=== PATIENT | male | born 1960 | race Caucasian/White ===

== ENCOUNTER 2016-06-27 23:35 | Emergency (ER) | payer OTHER ==
[~2016-06-27] VITALS: Ht 198.1 cm; Wt 81.6 kg
[~2016-06-27 23:35] MED LIST: AMOXIL500 MG PO; AUGMENTIN 875 M1 TAB PO; BACTRIM DS 8001 TAB PO; GABAPENTIN800 MG PO; MIRALAX17 GM PO; MULTIVITAMIN1 TA1 PO; PROPRANOLOL HCL40 MG PO; SPIRONOLACTONE100 MG PO; THIAMINE-100100 MG PO; URSODIOL300 MG PO; XIFAXAN550 MG PO; [UNRECOGNIZED DRUG - OTHER] PO
--- NOTE | 2016-06-27 23:49 | ED AMS/SEIZURE/WEAK/DIZZY ---
History of Present Illness General Chief Complaint: Altered Mental Status Stated Complaint: BIBA AMS Source: patient Exam Limitations: no limitations Vital Signs & Intake/Output Vital Signs & Intake/Output Vital Signs Date Time Temp Pulse Resp B/P Pulse O2 O2 Flow FiO2 Ox Delivery Rate 06/28 0227 98 06/27 2348 97.0 75 18 137/87 96 Room Air ED Intake and Output 06/28 0000 06/27 1200 Intake Total Output Total Balance Patient 180 lb Weight Allergies Coded Allergies: NO KNOWN ALLERGIES (03/05/14) Reconcile Medications Amoxicillin (Amoxil) 500 MG CAP 1 TAB PO TID CELLULITIS AMOXICILLIN/POTASSIUM CLAV (Augmentin 875-125 Tablet) 875 MG/125 MG TAB 1 TAB PO BID ABRASION/ANIMAL BITE [FLOVITE] 1 MG PO DAILY VITAMIN (Reported) Gabapentin 800 MG TABLET 800 MG PO TID RESTLESS LEGS (Reported) Gabapentin 400 MG CAPSULE 1 CAP PO TID NEUROPATHY (Reported) Multivitamin2 (Multivitamin) 1 EACH TAB 1 TAB PO DAILY VITAMIN (Reported) Pantoprazole Sodium 40 MG TABLET.DR 1 TAB PO DAILY REFLUX (Reported) Polyethylene Glycol 3350 (Miralax) 17 GRAM/DOSE POWDER 17 GM PO DAILY GI ( Reported) mix with water, juice, soda, coffee or tea Propranolol Hydrochloride (Propranolol HCl) 40 MG TAB 10 MG PO BID HTN ( Reported) Rifaximin (Xifaxan) 550 MG TAB 550 MG PO DAILY DIARRHEA (Reported) Spironolactone 100 MG TAB 50 MG PO DAILY CARDIAC (Reported) Sulfamethoxazole/Trimethopri (Bactrim Ds 800 MG-160 MG) 1 TAB TAB 1 TAB PO BID CELLULITIS Thiamine (Thiamine-100) 100 MG TAB 100 MG PO DAILY VITAMIN (Reported) Ursodiol 300 MG CAPSULE 1 CAP PO BID OTHER (Reported) Triage Note: PER EMS FOUND BY POLICE ON SIDEROAD WITH ENGINE OFF ?ALTERED ADMITS TO 2 NIPS TONIGHT, DENIES HEAVY CONSUMPTION, PER EMS INCONTINENT OF DIARRHEA, Triage Nurses Notes Reviewed? yes Onset: Abrupt Duration: hour(s): (FEW) Injury Environment: home Severity: severe No Modifying Factors: none HPI: 55-year-old male brought in by parents from home for chief complaint of being intoxicated. Patient was found intoxicated, covered with dried stool. He is status post discharge from [place] 2 days ago. Currently states that he is back to drinking and 1 night per day. He states he is drinking [employer]. History of alcoholic liver disease and cirrhosis per the patient. He denies any illicit drug use. He was found sitting in his car with the engine off on a side street. Police were called, who then contacted EMS. (RANJIT SALGADO MD) Past History Travel History Traveled to [place] past 21 day No Medical History Any Pertinent Medical History? see below for history Neurological: NONE EENT: NONE Cardiovascular: NONE Respiratory: NONE Gastrointestinal: C-DIFF Hepatic: ELEVATED LIVER ENZYMES Renal: NONE Musculoskeletal: NONE Psychiatric: NONE Endocrine: NONE Tetanus Vaccine: 10/29/13 Surgical History Surgical History: non-contributory Psychosocial History What is your primary language Vincentian Tobacco Use: Current Daily Use Daily Tobacco Use Amount/Type: =< 4 Cigarettes daily ETOH Use: heavy use Illicit Drug Use: amphetamines Family History Hx Contributory? No (RANJIT SALGADO MD) Review of Systems Review of Systems Constitutional: Denies: chills, fever. EENTM: Reports: no symptoms. Respiratory: Denies: cough. Cardiovascular: Denies: chest pain. GI: Denies: abdominal pain, diarrhea, nausea, vomiting. Genitourinary: Reports: no symptoms. Musculoskeletal: Reports: no symptoms. Skin: Reports: no symptoms. Neurological/Psychological: Reports: no symptoms. Hematologic/Endocrine: Denies: bruising, bleeding, polyuria, polydipsia. Immunologic/Allergic: Denies: splenectomy. All Other Systems: Reviewed and Negative (RANJIT SALGADO MD) Physical Exam Physical Exam General Appearance: alert, anxious, mild distress, thin Head: atraumatic, normal appearance Eyes: Bilateral: normal appearance, PERRL, EOMI. Ears, Nose, Throat: normal pharynx, normal ENT inspection, hearing grossly normal Neck: normal inspection, supple, full range of motion Respiratory: normal breath sounds, chest non-tender, no respiratory distress Cardiovascular: regular rate/rhythm Peripheral Pulses: 2+ radial (R), 2+ radial (L) Gastrointestinal: soft, non-tender Extremities: normal range of motion, DRIED STOOL ON LEGS Neurologic/Psych: awake, alert, oriented x 3 Skin: intact, normal color, warm/dry Core Measures ACS in differential dx? No CVA/TIA Diagnosis: No Severe Sepsis Present: No Septic Shock Present: No (RANJIT SALGADO MD) Progress Differential Diagnosis: alcohol intoxication, ALCOHOLIC LIVER DISEASE Plan of Care: Orders Procedure Date/time Status Regular Diet 06/28 B Active Add-on Test (ER Only) 06/28 312 Active RT ED ORDERS 06/28 229 Active URINE DRUGS OF ABUSE 06/27 235 Complete MAGNESIUM 06/27 235 Complete LIPASE 06/27 2348 Complete ETHANOL 06/27 2348 Complete COMPREHENSIVE METABOLIC PANEL 06/28 2347 Complete CBC WITHOUT DIFFERENTIAL 06/28 2347 Complete AMYLASE 06/27 234 Complete Laboratory Tests 06/28/16 0230: Urine Opiates Screen < 100.00, Methadone Screen < 40, Barbiturate Screen < 60, Ur Phencyclidine Scrn < 6.00, Amphetamines Screen < 100, U Benzodiazepines Scrn < 85, Urine Cocaine Screen < 50, Urine Cannabis Screen < 5.00 06/27/16 2350: Anion Gap 20 H, Estimated GFR > 60, BUN/Creatinine Ratio 8.0, Glucose 93, Calcium 8.9, Magnesium 1.3 L, Total Bilirubin 1.3, AST 51, ALT 48, Alkaline Phosphatase 230 H, Total Protein 8.2, Albumin 4.3, Globulin 3.9, Albumin/ Globulin Ratio 1.1, Amylase 52, Lipase 166, CBC w Diff NO MAN DIFF REQ, RBC 4.46 L, MCV 94.6 H, MCH 31.3 H, RDW 16.0 H, MPV 7.8, Gran % 66.6, Lymphocytes % 30.2, Monocytes % 2.9, Eosinophils % 0.1, Basophils % 0.2, Absolute Granulocytes 7.0 H, Absolute Lymphocytes 3.2, Absolute Monocytes 0.3, Absolute Eosinophils 0 , Absolute Basophils 0, PUBS MCHC 33.1, Serum Alcohol 342.0 6 AM PATIENT AMBULATORY MULTIPLE TIMES TO THE BATHROOM, UNSTEADY ON FEET REQUIRING WALKER. HE HAS HAD MULTIPLE CONTAINERS OF JUICE AND CRACKERS. CURRENTLY STILL INTOXICATED. WILL DISCHARGE WHEN SOBER. 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 Patient has no specific complaints this morning. He has eaten well in The emergency department and has tolerated fluids as well. There are no signs of alcohol withdrawal at this time. I've asked that he follow-up with his primary care doctor. (MAYI GILES,DEVYN Garrett) Departure Departure Disposition: HOME OR SELF CARE Condition: Stable Clinical Impression Primary Impression: Alcohol intoxication Secondary Impressions: Hypokalemia, URI (upper respiratory infection) Referrals: RAFAEL GILES,LITTLE Dahl (PCP/Family) Departure Forms: Customer Survey General Discharge Information (KAITLYN GILES,RANJIT) Departure Additional Instructions: FOLLOW UP WITH THE LIST OF OUTPATIENT DETOX FACILITIES AND CALL [phone] FOR INTERMEDIATE AVAILABILITY. Otherwise follow-up with your primary care physician as soon as possible for a general medical evaluation. Return if any concerns or sudden worsening. Please note that there might be incidental findings in your evaluation that are unrelated to the current emergency department visit. Please notify your primary care doctor about this emergency department visit in order to obtain and review all of the testing performed so that these incidental findings can be monitored as needed. (MAYI GILES,DEVYN Garrett)
[2016-06-28 00:07] LABS: ABSOLUTE BASOPHIL COUNT 0 /CUMM (0.0-0.2); ABSOLUTE EOSINOPHIL COUNT 0 /CUMM (0.0-0.7); ABSOLUTE LYMPH COUNT 3.2 /CUMM (1.2-3.4); ABSOLUTE MONOCYTE COUNT 0.3 /CUMM (0.10-0.60); BASOPHIL % 0.2 % (0.0-2.0); EOSINOPHIL % 0.1 % (0-5); GRANULOCYTE % 66.6 % (42.2-75.2); HEMATOCRIT 42.1 % (42-52); MEAN CORPUSCULAR HGB 31.3 PG (27.0-31.0); MEAN CORPUSCULAR HGB CONC 33.1 G/DL (33.0-37.0); MEAN CORPUSCULAR VOLUME 94.6 FL (80.0-94.0); MEAN PLATELET VOLUME 7.8 FL (7.4-10.4); PLATELET COUNT 243 /CUMM (130-400); RED BLOOD CELL CT 4.46 /CUMM (4.70-6.10); WHITE BLOOD CELL COUNT 10.6 /CUMM (4.8-10.8)
[2016-06-28] MEDS ORDERED: GABAPENTIN400 M2 PO (01:02)
[2016-06-28] MEDS ORDERED: PANTOPRAZOLE SO40 M1 PO (01:02)
[2016-06-28 07:44] VITALS: BP 134/84
== END 2016-06-28 08:31 ==
LOC: ERH 23:35
PROVIDERS: Emergency Medicine
DX: F10.129 Alcohol abuse with intoxication, unspecified (principal); E87.6 Hypokalemia; J06.9 Acute upper respiratory infection, unspecified; Z72.0 Tobacco use; K70.9 Alcoholic liver disease, unspecified; K74.60 Unspecified cirrhosis of liver
CPT/HCPCS: 1263; 80307; G0480